=== PATIENT | female | born 1965 | race Caucasian/White ===

== ENCOUNTER → 2019-07-03 | Outpatient (CLI) | payer MEDICAID ==
--- NOTE | 2019-07-03 16:15 | XR ---
EXAMINATION TYPE: XR Hip Complete RT DATE OF EXAM: 07/03/2019 CLINICAL HISTORY: Right hip pain TECHNIQUE: AP and frogleg views of the right hip are obtained. COMPARISON: None. FINDINGS: There is no acute fracture/dislocation evident in the right hip. The joint space in the r ight hip appears slightly narrowed in a cephalad direction with acetabular roof sclerosis. Small ost eophyte of the medial femoral head is seen on the frog leg view. The overlying soft tissue appears un remarkable. Tubal ligation clip is noted within the pelvis. IMPRESSION: There is no acute fracture or dislocation in the right hip. Mild right femoral acetabula r arthropathy.
== END | disposition home or self-care (01) ==
LOC: RADXRMAIN 14:04
PROVIDERS: ATTEND Anesthesiology
DX: M12.851 Other specific arthropathies, not elsewhere classified, right hip (principal)
CPT/HCPCS: 73502

== ENCOUNTER 2024-11-28 17:44 | Inpatient (IN) | payer MEDICAID, OTHER ==
--- NOTE | 2024-11-28 18:24 | ED ---
Abdominal Pain HPI - General Chief Complaint: Abdominal Pain Stated Complaint: Abd pain Time Seen by Provider: 11/28/24 17:53 Source: patient, EMS, RN notes reviewed Mode of arrival: EMS Limitations: no limitations - History of Present Illness Initial Comments: This is a 59-year-old female who presents to the emergency department for abdominal pain. Patient reports left lower quadrant abdominal pain starting 3 to 4 hours ago while she was at work. States that she started to feel nauseous as well. She takes morphine and [place] chronically, however those were not effectively managing her symptoms. Denies any diarrhea or constipation. Denies any history of diverticulosis or similar symptoms in the past. MD Complaint: abdominal pain - Related Data Allergies Allergy/AdvReac Type Severity Reaction Status Date / Time Sulfa (Sulfonamide AdvReac Rash/Hives Verified 11/28/24 18:03 Antibiotics) Review of Systems ROS Statement: Those systems with pertinent positive or pertinent negative responses have been documented in the HPI. ROS Other: All systems not noted in ROS Statement are negative. Past Medical History Past Medical History: Diabetes Mellitus, Fibromyalgia, Sleep Apnea/CPAP/BIPAP Additional Past Medical History / Comment(s): Fatiалександр, TMJ, Past Psychological History: No Psychological Hx Reported Smoking Status: Never smoker Past Alcohol Use History: Occasional Past Drug Use History: None Reported General Exam Limitations: no limitations General appearance: alert, in no apparent distress Head exam: Present: atraumatic, normocephalic, normal inspection Respiratory exam: Present: normal lung sounds bilaterally. Absent: respiratory distress, wheezes, rales, rhonchi, stridor Cardiovascular Exam: Present: normal rhythm, tachycardia GI/Abdominal exam: Present: soft, tenderness (LLQ and RLQ). Absent: distended Neurological exam: Present: alert, oriented X3, CN II-XII intact Psychiatric exam: Present: normal affect, normal mood Skin exam: Present: warm, dry, intact, normal color. Absent: rash Course Vital Signs 11/28/24 11/28/24 11/28/24 17:55 18:05 19:02 Temperature 100.9 F H 101.6 F H Pulse Rate 113 H 113 H Respiratory 18 16 Rate Blood Pressure 147/78 154/72 O2 Sat by Pulse 94 L 98 Oximetry 11/28/24 11/28/24 11/29/24 19:44 22:09 00:10 Temperature 99.4 F 99.0 F Pulse Rate 103 H 94 91 Respiratory 17 14 16 Rate Blood Pressure 120/68 118/49 139/74 O2 Sat by Pulse 98 95 98 Oximetry Medical Decision Making - Medical Decision Making This is a 59 year old female who presents to the emergency department for abdominal pain. Was pt. sent in by a medical professional or institution? @ -No Did you speak to anyone other than the patient for history? @ -No Did you review nursing and triage notes? @ -Yes, and I agree, it is accurate with regards to the patient's symptoms. Were old charts reviewed? @ -No Differential Diagnosis? @ -Differential Abdominal Pain Women: Appendicitis, Cholecystitis, diverticulosis, ischemic bowel, pancreatitis, hepatitis, UTI, gastroenteritis, AAA, incarcerated hernia, bowel obstruction, constipation, inflammatory bowel, hepatitis, peptic ulcer disease, splenic infarction, perforated viscus, vulvitis, ovarian torsion, PID, kidney stone, placenta abruption, this is not meant to be an all-inclusive list EKG interpreted by me (3pts min.)? @ -EKG interpreted by me demonstrating the following: Sinus rhythm. Ventricular rate 90 bpm, UT interval 149 ms, QRS duration 94 ms, QTc 403 ms. X-rays interpreted by me (1pt min.)? @ -Not obtained CT interpreted by me (1pt min.)? @ -CT scan of the abdomen and pelvis obtained. My interpretation identifies no evidence of bowel wall thickening or free air. U/S interpreted by me (1pt. min.)? @ -Transvaginal ultrasound obtained. My interpretation identifies thickening in the endometrial canal. What testing was considered but not performed? (CT, X-rays, U/S, labs)? Why? @ -None What meds were considered but not given? Why? @ -None Did you discuss the management of the patient with other professionals? @ -Yes, Ajit Velez, who accepts the patient for admission. Did you reconcile home meds? @ -No Was smoking cessation discussed for >3mins.? @ -No Was critical care preformed (if so, how long)? @ -No Were there social determinants of health that impacted care today? How? (Homelessness, low income, unemployed, alcoholism, drug addiction, transportation, low edu. Level, literacy, decrease access to med. care, usp, rehab)? @ -No Was there de-escalation of care discussed even if they declined? (Discuss DNR or withdrawal of care, Hospice)? @ -No What co-morbidities impacted this encounter? (DM, HTN, Smoking, COPD, CAD, Cancer, CVA, Hep., AIDS, mental health diagnosis, sleep apnea, morbid obesity)? @ -DM, fibromyalgia Was patient admitted / discharged? @ -Admitted. Patient was febrile on arrival with a temperature of 101.6 de grees Fahrenheit. Lab work demonstrates leukocytosis with a white blood cell count of 12. Urinalysis demonstrates blood but is negative for signs of infection. We started with a CT scan of the abdomen and pelvis. No obvious gastrointestinal process was identified. However, she was found to have a thickened endometrial canal with low-density fluid in the right hemipelvis. We then proceeded with a transvaginal ultrasound. This revealed complex thickening within the endometrial canal and hemorrhage is favored. Patient denies any vaginal bleeding. She is not fully menopausal yet, but states that she has not had a period in 6 months. Patient appears to have some sort of pelvic infection . Patient admitted to medicine for further management with IV antibiotics. Additionally, because she is opioid tolerant her pain would be difficult to manage at home. Blood cultures obtained and she was started on Rocephin, Flagyl, and doxycycline. Consult placed for [facility] [employer]. Case discussed with ED attending Dr. Chang. Undiagnosed new problem with uncertain prognosis? @ -None Drug Therapy requiring intensive monitoring for toxicity (Heparin, Nitro, I nsulin, Cardizem)? @ -None Were any procedures done? @ -None Diagnosis/symptom? @ -Pelvic infection Acute, or Chronic, or Acute on Chronic? @ -Acute Uncomplicated (without systemic symptoms) or Complicated (systemic symptoms)? @ -Uncomplicated Side effects of treatment? @ -None Exacerbation, Progression, or Severe Exacerbation] @ -Not applicable Poses a threat to life or bodily function? @ -Yes, can lead to life-threatening infection - Lab Data Result diagrams: 11/28/24 18:42 11/28/24 18:42 Lab Results 11/28/24 11/28/24 11/28/24 Range/Units 18:42 18:42 18:42 WBC 12.0 H (3.8-10.6) k/uL RBC 4.30 (3.80-5.40) m/uL Hgb 12.9 (11.4-16.0) gm/dL Hct 39.4 (34.0-46.0) % MCV 91.5 (80.0-100.0) fL MCH 30.0 (25.0-35.0) pg MCHC 32.8 (31.0-37.0) g/dL RDW 13.1 (11.5-15.5) % Plt Count 185 (150-450) k/uL MPV 7.4 Neutrophils % 84 % Lymphocytes % 10 % Monocytes % 3 % Eosinophils % 1 % Basophils % 0 % Neutrophils # 10.1 H (1.3-7.7) k/uL Lymphocytes # 1.2 (1.0-4.8) k/uL Monocytes # 0.4 (0-1.0) k/uL Eosinophils # 0.2 (0-0.7) k/uL Basophils # 0.0 (0-0.2) k/uL Sodium 137 (137-145) mmol/L Potassium 4.5 (3.5-5.1) mmol/L Chloride 98 (98-107) mmol/L Carbon Dioxide 31 H (22-30) mmol/L Anion Gap 8 mmol/L BUN 24 H (7-17) mg/dL Creatinine 0.64 (0.52-1.04) mg/dL Est GFR (CKD-EPI)AfAm >90 (>60 ml/min/1.73 sqM) Est GFR (CKD-EPI)NonAf >90 (>60 ml/min/1.73 sqM) Glucose 106 H (74-99) mg/dL Plasma Lactic Acid [place] 0.8 (0.7-2.0) mmol/L Calcium 9.4 (8.4-10.2) mg/dL Total Bilirubin 0.7 (0.2-1.3) mg/dL AST 28 (14-36) U/L ALT 33 (4-34) U/L Alkaline Phosphatase 75 (38-126) U/L Total Protein 7.1 (6.3-8.2) g/dL Albumin 4.4 (3.5-5.0) g/dL Amylase 54 (30-110) U/L Lipase 56 (23-300) U/L HCG, Qual Urine Color Urine Appearance (Clear) Urine pH (5.0-8.0) Ur Specific Gladys (1.001-1.035) Urine Protein (Negative) Urine Glucose (UA) (Negative) Urine Ketones (Negative) Urine Blood (Negative) Urine Nitrite (Negative) Urine Bilirubin (Negative) Urine Urobilinogen (<2.0) mg/dL Ur Leukocyte Esterase (Negative) Urine RBC (0-5) /hpf Urine WBC (0-5) /hpf Ur Squamous Epith Cells (0-4) /hpf Urine Bacteria (None) /hpf Urine Mucus (None) /hpf 11/28/24 11/28/24 Range/Units 20:19 20:19 WBC (3.8-10.6) k/uL RBC (3.80-5.40) m/uL Hgb (11.4-16.0) gm/dL Hct (34.0-46.0) % MCV (80.0-100.0) fL MCH (25.0-35.0) pg MCHC (31.0-37.0) g/dL RDW (11.5-15.5) % Plt Count (150-450) k/uL MPV Neutrophils % % Lymphocytes % % Monocytes % % Eosinophils % % Basophils % % Neutrophils # (1.3-7.7) k/uL Lymphocytes # (1.0-4.8) k/uL Monocytes # (0-1.0) k/uL Eosinophils # (0-0.7) k/uL Basophils # (0-0.2) k/uL Sodium (137-145) mmol/L Potassium (3.5-5.1) mmol/L Chloride (98-107) mmol/L Carbon Dioxide (22-30) mmol/L Anion Gap mmol/L BUN (7-17) mg/dL Creatinine (0.52-1.04) mg/dL Est GFR (CKD-EPI)AfAm (>60 ml/min/1.73 sqM) Est GFR (CKD-EPI)NonAf (>60 ml/min/1.73 sqM) Glucose (74-99) mg/dL Plasma Lactic Acid [place] (0.7-2.0) mmol/L Calcium (8.4-10.2) mg/dL Total Bilirubin (0.2-1.3) mg/dL AST (14-36) U/L ALT (4-34) U/L Alkaline Phosphatase (38-126) U/L Total Protein (6.3-8.2) g/dL Albumin (3.5-5.0) g/dL Amylase (30-110) U/L Lipase (23-300) U/L HCG, Qual Not Detected Urine Color Dark Yellow Urine Appearance Clear (Clear) Urine pH 5.5 (5.0-8.0) Ur Specific Gladys 1.030 (1.001-1.035) Urine Protein Negative (Negative) Urine Glucose (UA) Negative (Negative) Urine Ketones 1+ H (Negative) Urine Blood Moderate H (Negative) Urine Nitrite Negative (Negative) Urine Bilirubin Negative (Negative) Urine Urobilinogen <2.0 (<2.0) mg/dL Ur Leukocyte Esterase Negative (Negative) Urine RBC 31 H (0-5) /hpf Urine WBC 1 (0-5) /hpf Ur Squamous Epith Cells 5 H (0-4) /hpf Urine Bacteria Rare H (None) /hpf Urine Mucus Rare H (None) /hpf - Radiology Data Radiology results: report reviewed, image reviewed Disposition Clinical Impression: Pelvic infection in female Disposition: ADMITTED IP TO THIS HOSP
[2024-11-28] MEDS: SODIUM CHLORIDE 0.9% 2,000 ML IV STA (18:53)
[2024-11-28] MEDS: HYDROmorphone 1 MG/ML 1 ML SYRINGE IVP STA (18:55)
[2024-11-28 18:57] LABS: Basophils % (A) 0 %; Eosinophils # (A) 0.2 k/uL (0-0.7); Eosinophils % (A) 1 %; HCT 39.4 % (34.0-46.0); HGB 12.9 gm/dL (11.4-16.0); Lymphocytes # (A) 1.2 k/uL (1.0-4.8); Lymphocytes % (A) 10 %; MCHC 32.8 g/dL (31.0-37.0); MCV 91.5 fL (80.0-100.0); Mean Platelet Volume 7.4; Monocytes # (A) 0.4 k/uL (0-1.0); Monocytes % (A) 3 %; Neutrophils # (A) 10.1 k/uL (1.3-7.7); Neutrophils % (A) 84 %; Platelet Count 185 k/uL (150-450); RDW 13.1 % (11.5-15.5)
[2024-11-28] MEDS: ACETAMINOPHEN IV (For NPO) 1,000 MG in EMPTY BAG 1 BAG IVPB STA (19:01)
[2024-11-28 19:09] LABS: ALT 33 U/L (4-34); AST 28 U/L (14-36); African American GFR (CKD) >90 (>60 ml/min/1.73 sqM); Albumin 4.4 g/dL (3.5-5.0); Alkaline Phosphatase 75 U/L (38-126); Amylase 54 U/L (30-110); Anion Gap 8 mmol/L; Blood Urea Nitrogen 24 mg/dL (7-17); Calcium 9.4 mg/dL (8.4-10.2); Carbon Dioxide 31 mmol/L (22-30); Chloride 98 mmol/L (98-107); Glucose 106 mg/dL (74-99); Lipase 56 U/L (23-300); Non-African American GFR(CKD) >90 (>60 ml/min/1.73 sqM); Potassium 4.5 mmol/L (3.5-5.1); Sodium 137 mmol/L (137-145); Total Bilirubin 0.7 mg/dL (0.2-1.3); Total Protein 7.1 g/dL (6.3-8.2)
--- NOTE | 2024-11-28 20:19 | CT ---
EXAMINATION TYPE: CT abdomen pelvis w con DATE OF EXAM: 11/28/2024 8:03 PM COMPARISON: None. CLINICAL INDICATION: Female, 59 years old with history of LLQ abdominal pain, Lower abdominal pain TECHNIQUE: Axial images were obtained from above the diaphragm to the pubic rami in the axial plane a t 5 mm thick sections. Reconstructed images are reviewed on the computer in the coronal plane. CONTRAST: 100 mL of Isovue 300. Study performed without Oral Contrast DLP: 797.1 mGycm, Automated exposure control for dose reduction was used. FINDINGS: Limited CT sections are obtained the lung bases. The lung bases are clear. CT ABDOMEN: Liver: Normal Spleen: Normal Pancreas: Normal Adrenal glands: The adrenal glands are normal. Gallbladder: Normal Kidneys: No masses are evident. No hydronephrosis is present. No cysts are present. Delayed images were obtained through the kidneys, which remain unremarkable. Aorta: Vascular calcification is within the aorta. Inferior vena cava: Normal. CT PELVIS: Loops of bowel within the abdomen and pelvis are normal. The study is without oral contrast limit ing bowel evaluation. Appendix: Normal as visualized. Urinary bladder: Normal. Genitourinary structures: Uterus is in the anterior right hemipelvis and has enlarged endometrial can al with low density may be some fluid. Osseous structures: No suspicious lytic or sclerotic lesions. IMPRESSION: 1. Thickened endometrial canal likely with low-density fluid in the right hemipelvis. 2. Suspicious abnormality account for left lower quadrant pain not identified. [facility], Workstation: [facility], 11/28/2024 8:17 PM
[2024-11-28 20:32] LABS: Appearance,Urine Clear (Clear); Bacteria,Urine Rare /hpf; Bilirubin,Urine Negative (Negative); Blood,Urine Moderate (Negative); Color,Urine Dark Yellow; Glucose,Urine (UA) Negative (Negative); Ketones,Urine 1+ (Negative); Leukocyte Esterase,Urine Negative (Negative); Mucus,Urine Rare /hpf; Nitrite,Urine Negative (Negative); PH, Urine 5.5 (5.0-8.0); Protein,Urine Negative (Negative); RBC,Urine 31 /hpf (0-5); Squamous Epithelial Cell,Urine 5 /hpf (0-4); Urobilinogen,Urine <2.0 mg/dL (<2.0); WBC,Urine 1 /hpf (0-5)
--- NOTE | 2024-11-28 21:46 | US ---
EXAMINATION TYPE: US transvaginal DATE OF EXAM: 11/28/2024 COMPARISON: CT 2024 CLINICAL INDICATION: Female, 59 years old with history of Pelvic pain, fevers, abnormal CT; TECHNIQUE: Transvaginal (TV). FINDINGS: Date of LMP: 1 year ago EXAM MEASUREMENTS: Uterus: 9.7 x 4.4 x 5.4 cm Endometrial Stripe: 2.7 cm Right Ovary: not seen Left Ovary: not seen 1. Uterus: anteverted 2. Endometrium: thickened with complex fluid 3. Right Ovary: not seen due to overlying bowel gas 4. Left Ovary: not seen due to overlying bowel gas 5. Bilateral Adnexa: prominent vessels 6. Posterior cul-de-sac: free fluid IMPRESSION: 1. Complex thickening within the endometrial canal. Hemorrhage is favored. Correlate with beta hCG. F ollow-up recommended [facility], Workstation: [facility], 11/28/2024 9:43 PM
[2024-11-28] MEDS ORDERED: NALOXONE 0.4 MG/ML 1 ML VIAL IV PRN (22:47)
[2024-11-28] MEDS ORDERED: ONDANSETRON 4 MG/2 ML VIAL IVP PRN (22:47)
[2024-11-28] MEDS ORDERED: HYDROmorphone 0.5 MG/0.5 ML SYRINGE IVP PRN (22:47)
[2024-11-28] MEDS: SODIUM CHLORIDE 0.9% 1,000 ML IV STA (23:13)
[2024-11-28] MEDS: KETOROLAC 15 MG/ML 1 ML VIAL IVP PRN (23:23)
[2024-11-28] MEDS: DOXYCYCLINE 100 MG in SODIUM CHLORIDE 0.9% 100 ML IVPB SCH (23:33)
[2024-11-29] MEDS: metroNIDAZOLE-NS PMX 500 MG in SALINE 1 100ML.BAG IVPB SCH (00:32)
[2024-11-29] MEDS: IBUPROFEN 400 MG TAB PO PRN (03:13)
[2024-11-29] MEDS: PANTOPRAZOLE 40 MG/10 ML VIAL IV SCH (08:21)
[2024-11-29] MEDS: HYDROmorphone 1 MG/ML 1 ML SYRINGE IVP PRN (08:53)
--- NOTE | 2024-11-29 13:33 | P.HPIM ---
History of Present Illness H&P Date: 11/29/24 History of present illness: This is a 59-year-old female with past medical history significant for diabetes mellitus, fibromyalgia, obstructive sleep apnea who presented to ER with a complaint of abdominal pain. Patient stated that she has left lower quadrant abdominal pain, radiating to right side going on since yesterday. Patient stated that she was at work when the abdominal pain started. Patient reported nausea, denied any vomiting, diarrhea or constipation. Patient stated that she takes morphine and [place] chronically, the pain medications are not effectively managing her pain. Patient reported chills, denied any fevers. Patient never had colonoscopy. Patient is postmenopausal for the last 7 years, had a D&C about 1-1/2-year ago for vaginal spotting and reported having a endometrial polyp, reported no issues since then. Patient not sexually active. Patient is afebrile, heart rate 92, respiratory rate 18, blood pressure 133/73, saturating 96% on room air. WBCs 12.0, hemoglobin 12.9, platelet 185. ESR 22, CRP 3.2. CMP unremarkable. UA negative for infection. CT abdomen pelvis showed thickened endometrial canal likely with low-density fluid in the right hemipelvis. Transvaginal ultrasound showed complex thickening within the endometrial canal, hemorrhages favored, correlate with beta-hCG, follow-up recommended. Assessment and plan: Lower abdominal pain: Presented with complaint of lower abdominal pain, more pronounced in left lower quadrant. CT abdomen pelvis showed thickened endometrial canal likely with low-density fluid in the right hemipelvis Transvaginal ultrasound showed complex thickening within the endometrial canal, hemorrhage favored. EXERCISE SPECIALIST consultedrecommended general surgery consult ID consulted Antibiotics Rocephin, Flagyl, doxycycline General Surgery consult to evaluate for colonoscopy. History of fibromyalgia Obstructive sleep apnea GERD DVT prophylaxis SCD Monitor vital signs and labs Labs and medication were reviewed. Continue same treatment. Further recommendations as per clinical course of the patient PHYSICAL EXAMINATION: GENERAL: The patient is A&O x3, NAD HEENT: EOMI, Sclerae anicteric, Moist Mucous membranes Neck: Supple, Non tender, No JVD PULMONARY: Equal breath souds B/L, No wheezing, No crackles. CARDIOVASCULAR: S1, S2 present. No murmurs, rubs, or gallops. ABDOMEN: Lower abdominal tenderness. Nondistended, normoactive bowel sounds. No guarding or rebound tenderness. MUSCULOSKELETAL: No edema, No cyanosis. No clubbing. Normal ROM. Intact peripheral pulses. NEUROLOGICAL: CN 2-12 grossly intact. No FND REVIEW OF SYSTEMS: CONSTITUTIONAL: No fever, no malaise, no fatigue. HEENT: No recent visual problems or hearing problems. Denied any sore throat. CARDIOVASCULAR: No chest pain, orthopnea, PND, no palpitations, no syncope. PULMONARY: No shortness of breath, no cough, no hemoptysis. GASTROINTESTINAL: No diarrhea, no nausea, no vomiting, complains of lower abdominal pain. NEUROLOGICAL: No headaches, no weakness, no numbness. HEMATOLOGICAL: Denies any bleeding or petechiae. GENITOURINARY: Denies any burning micturition, frequency, or urgency. MUSCULOSKELETAL/RHEUMATOLOGICAL: Denies any joint pain, swelling, or any muscle pain. ENDOCRINE: Denies any polyuria or polydipsia. The rest of the 14-point review of systems is negative. Dictation was produced using [employer] dictation software. please excuse any grammatical, word or spelling errors. Past Medical History Past Medical History: Diabetes Mellitus, Fibromyalgia, Sleep Apnea/CPAP/BIPAP Additional Past Medical History / Comment(s): Fatique, TMJ, History of Any Multi-Drug Resistant Organisms: None Reported Past Anesthesia/Blood Transfusion Reactions: No Reported Reaction Past Psychological History: No Psychological Hx Reported Smoking Status: Never smoker Past Alcohol Use History: Occasional Past Drug Use History: None Reported Medications and Allergies Allergies Allergy/AdvReac Type Severity Reaction Status Date / Time Sulfa (Sulfonamide AdvReac Rash/Hives Verified 11/28/24 18:03 Antibiotics) Physical Exam Vitals: Vital Signs Temp Pulse Pulse Resp BP BP Pulse Ox 11/29/24 13:11 98.6 F 92 18 133/73 96 11/29/24 07:56 97.7 F 89 19 157/80 94 L 11/29/24 06:51 87 18 141/76 97 11/29/24 04:03 98.6 F 82 17 150/74 96 11/29/24 01:58 98.4 F 11/29/24 00:10 91 16 139/74 98 11/28/24 22:09 99.0 F 94 14 118/49 95 11/28/24 19:44 99.4 F 103 H 17 120/68 98 11/28/24 19:02 113 H 16 154/72 98 11/28/24 18:05 101.6 F H 11/28/24 17:55 100.9 F H 113 H 18 147/78 94 L Intake and Output 11/28/24 11/29/24 11/29/24 22:59 06:59 14:59 Other: Weight 70.307 kg 70.307 kg Results CBC & Chem 7: 11/28/24 18:42 11/28/24 18:42 Labs: Abnormal Lab Results - Last 24 Hours (Table) 11/28/24 11/28/24 11/28/24 Range/Units 18:42 18:42 20:19 WBC 12.0 H (3.8-10.6) k/uL Neutrophils # 10.1 H (1.3-7.7) k/uL Carbon Dioxide 31 H (22-30) mmol/L BUN 24 H (7-17) mg/dL Glucose 106 H (74-99) mg/dL C-Reactive Protein (<1.0) mg/dL Urine Ketones 1+ H (Negative) Urine Blood Moderate H (Negative) Urine RBC 31 H (0-5) /hpf Ur Squamous Epith Cells 5 H (0-4) /hpf Urine Bacteria Rare H (None) /hpf Urine Mucus Rare H (None) /hpf 11/28/24 Range/Units 22:51 WBC (3.8-10.6) k/uL Neutrophils # (1.3-7.7) k/uL Carbon Dioxide (22-30) mmol/L BUN (7-17) mg/dL Glucose (74-99) mg/dL C-Reactive Protein 3.2 H (<1.0) mg/dL Urine Ketones (Negative) Urine Blood (Negative) Urine RBC (0-5) /hpf Ur Squamous Epith Cells (0-4) /hpf Urine Bacteria (None) /hpf Urine Mucus (None) /hpf Thrombosis Risk Factor Assmnt - Choose All That Apply Each Factor Represents 1 point: Age 41-60 years Other congenital or acquired thrombophilia - If yes, enter type in comment: No Thrombosis Risk Factor Assessment Total Risk Factor Score: 1 Thrombosis Risk Factor Assessment Level: Low Risk
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
[2024-11-29] MEDS: IOPAMIDOL CONTRAST (ORAL USE) VIAL PO PRN (14:43)
[2024-11-29] MEDS: PIPERACILLIN-TAZOBACTAM 3.375 GM in SODIUM CHLORIDE 0.9% 100 ML IVPB SCH (16:48)
[2024-11-29 17:17] LABS: Glucose,Whole Blood 139 mg/dL (70-110)
--- NOTE | 2024-11-29 18:12 | CT ---
EXAMINATION TYPE: CT abdomen pelvis wo con DATE OF EXAM: 11/29/2024 4:28 PM COMPARISON: CT abdomen pelvis most recent from CLINICAL INDICATION: Female, 59 years old with history of Left lower abdominal pain/diverticulitis; a bdominal pain, nausea TECHNIQUE: Axial CT abdomen pelvis wo con;Sagittal and coronal reformats were created on a separate workstation. Oral contrast used: with Oral Contrast (none if empty) CT DLP: 399.6 mGycm, Automated exposure control for dose reduction was used. FINDINGS: LOWER CHEST: Unremarkable ABDOMEN LIVER: Unremarkable GALLBLADDER AND BILE DUCTS: Unremarkable. PANCREAS: Unremarkable. SPLEEN: Unremarkable. ADRENAL GLANDS: Unremarkable. KIDNEYS AND URETERS: No evidence of hydronephrosis or renal calculus. The ureters are unremarkable. PELVIS BLADDER: Mildly distended without evidence of wall thickening or discrete bladder mass. REPRODUCTIVE: Bilateral metallic densities compatible with tube ligation clips.. Lumbar spine degenerative changes. Thickening of the endometrial canal measuring approximately 16 mm in diameter, not well evaluated on this noncontrast study. ABDOMEN & PELVIS STOMACH AND BOWEL: Stomach and duodenum are unremarkable No evidence of bowel obstruction. Large volu me diffuse colonic stool burden suggesting constipation. PERITONEUM/RETROPERITONEUM: No evidence of pneumoperitoneum or free fluid. VASCULATURE: No evidence of aortic aneurysm. MUSCULOSKELETAL: No acute osseous abnormalities. Spinal stimulator device LYMPH NODES: No gross evidence for lymphadenopathy. SOFT TISSUE/ABDOMINAL WALL: Unremarkable IMPRESSION: 1. No acute abnormality in the abdomen/pelvis. Specifically, no CT evidence of acute diverticulitis. 2. Large volume diffuse colonic stool burden suggesting constipation. 3. Thickened endometrium measuring approximately 16 mm in greatest diameter, not well evaluated on t his noncontrast CT abdomen/pelvis study. Recommend outpatient pelvic ultrasound study for further dale luation. [facility], , 11/29/2024 6:10 PM
[2024-11-29 20:00] LABS: Glucose,Whole Blood 131 mg/dL (70-110)
[2024-11-29] MEDS ORDERED: DOCUSATE 100 MG CAP PO PRN (20:05)
--- NOTE | 2024-11-29 20:11 | P.CON ---
Consult Note - . Consult date: 11/29/24 Assessment/Plan:: This is a 59-year-old female who presents to the emergency department for abdominal pain. Patient reports left lower quadrant abdominal pain starting 3 to 4 hours ago while she was at work. States that she started to feel nauseous as well. She takes morphine and [place] chronically, however those were not effectively managing her symptoms. Denies any diarrhea or constipation. Denies any history of diverticulosis or similar symptoms in the past. CT-AP performed this evening shows constipation, endometrial thickening, and no other acute process. Patient has never had a colonoscopy. Review of Systems ROS Statement: Those systems with pertinent positive or pertinent negative responses have been documented in the HPI. ROS Other: All systems not noted in ROS Statement are negative. Past Medical History Past Medical History: Diabetes Mellitus, Fibromyalgia, Sleep Apnea/CPAP/BIPAP Additional Past Medical History / Comment(s): Jody, TMJ, Past Psychological History: No Psychological Hx Reported Smoking Status: Never smoker Past Alcohol Use History: Occasional Past Drug Use History: None Reported General Exam Limitations: no limitations General appearance: alert, in no apparent distress Head exam: Present: atraumatic, normocephalic, normal inspection Respiratory exam: Present: normal lung sounds bilaterally. Absent: respiratory distress, wheezes, rales, rhonchi, stridor Cardiovascular Exam: Present: normal rhythm, tachycardia GI/Abdominal exam: Present: soft, tenderness (LLQ and RLQ). Absent: distended Neurological exam: Present: alert, oriented X3, CN II-XII intact Psychiatric exam: Present: normal affect, normal mood Skin exam: Present: warm, dry, intact, normal color. Absent: rash 53 year old female with abdominal pain. CT-AP shows constipation and endometrial thickening -Imaging reviewed -Discussed possible inpatient vs outpatient colonoscopy with patient. If symptoms do not improve will do colonoscopy Sunday. -Will need to be on CLD Sunday and Bowel Prep Sunday -Chipper Machine Operator recs appreciated -Miralax and Colace added Des Ramirez DO [facility] [phone]
[2024-11-29] MEDS: ACETAMINOPHEN TAB 325 MG TAB PO PRN (20:39)
[2024-11-29] MEDS ORDERED: NON FORMULARY DRUG (Orphenadrine 100 MG Tablet) PO PRN (21:34)
[2024-11-29] MEDS: MORPHINE SULFATE ER 15 MG TABLET PO SCH (22:15)
[2024-11-29] MEDS: traZODone HCL 50 MG TAB PO SCH (22:15)
[2024-11-30] MEDS: LEVOTHYROXINE 50 MCG TAB PO SCH (06:05)
[2024-11-30 07:15] LABS: Glucose,Whole Blood 93 mg/dL (70-110)
[2024-11-30] MEDS: buPROPion XL 300 MG TAB.ER.24H PO SCH (08:19)
[2024-11-30] MEDS: lisinopriL 10 MG TAB PO SCH (08:19)
[2024-11-30] MEDS: CYCLOBENZAPRINE 5 MG TAB PO SCH (08:19)
[2024-11-30] MEDS: polyethylene glycoL 3350 17 GM POWD.PACK PO SCH (08:20)
[2024-11-30] MEDS: NON FORMULARY DRUG (Dextroamphetamine/Amphetamine [Adderall Xr 10 Mg Capsule] 10 MG Cap.Er PO SCH (08:20)
[2024-11-30] MEDS: HYDROcodone/APAP 5-325MG 1 EACH TAB PO PRN (08:27)
--- NOTE | 2024-11-30 08:54 | P.CONS ---
History of Present Illness - Reason for Consult Consult date: 11/29/24 PID Requesting physician: Cirilo Dao - Chief Complaint Left lower abdominal pain x 1 day - History of Present Illness Patient is a 59-year-old female with a past medical history significant for diabetes mellitus fibromyalgia sleep apnea [facility] for evaluation of left lower quadrant abdominal pain that apparently started about 4 hours before presentation to the hospital patient describing the pain to be sharp has been moderate intense without radiation patient has felt nauseous but no vomiting patient denies having any diarrhea denies having any burning or frequency of urine and denies having any vaginal drainage patient to have a history of constipation and uses laxatives on a routine basis or visitation to the hospital patient did have a fever with a temperature of 101.6 F patient was mildly tachycardic but not hypotensive or hypoxic patient workup including UA tissue sent pneumaturia but no pyuria white count was 12,000 with a left shift creatinine was 0.64 electrolytes are normal liver isms are normal urine hCG was negative CRP was 3.2 blood culture have been obtained which are currently pending patient did have abdominal pelvis CT with IV contrast only which mention thickened endometrial canal with low-density fluid in the right hemipelvis no abnormality in the left lower quadrant subsequently did have a transvaginal ultrasound right and left ovary not seen because the gas uterus was anteverted endometrium was thickened with complex fluid patient was started on Rocephin Flagyl and doxycycline infectious disease was consulted for further management of antibiotic therapy patient has been evaluated by OB with impression of pelvic infection virtually 0 Review of Systems Positive point and negatives has been mentioned in the HPI, complete review of systems was performed and all other systems are negative Past Medical History Past Medical History: Diabetes Mellitus, Fibromyalgia, Sleep Apnea/CPAP/BIPAP Additional Past Medical History / Comment(s): Jody, TMJ, History of Any Multi-Drug Resistant Organisms: None Reported Past Anesthesia/Blood Transfusion Reactions: No Reported Reaction Past Psychological History: No Psychological Hx Reported Smoking Status: Never smoker Past Alcohol Use History: Occasional Past Drug Use History: None Reported Medications and Allergies Home Medications Medication Instructions Recorded Confirmed Type Cyclobenzaprine [Flexeril] 5 mg PO DAILY 11/29/24 11/29/24 History Dextroamphetamine/Amphetamine 10 mg PO DAILY 11/29/24 11/29/24 History [Adderall Xr 10 mg Capsule] HYDROcodone/APAP 5-325MG [[place] 1 tab PO BID 11/29/24 11/29/24 History 5-325] Levothyroxine Sodium [Synthroid] 50 mcg PO DIRECTED 11/29/24 11/29/24 History Milnacipran HCl [Savella] 100 mg PO DIRECTED 11/29/24 11/29/24 History Morphine Sulfate ER [Ms Contin] 15 mg PO BID 11/29/24 11/29/24 History Orphenadrine [Norflex] 100 mg PO BID PRN 11/29/24 11/29/24 History buPROPion XL [Wellbutrin XL] 300 mg PO DAILY 11/29/24 11/29/24 History lisinopriL [Zestril] 10 mg PO DAILY 11/29/24 11/29/24 History rOPINIRole HCL [Requip] 1 mg PO HS 11/29/24 11/29/24 History traZODone HCL [Desyrel] 50 mg PO HS 11/29/24 11/29/24 History Allergies Allergy/AdvReac Type Severity Reaction Status Date / Time Sulfa (Sulfonamide Allergy Rash/Hives Verified 11/29/24 14:28 Antibiotics) sulfamethoxazole Allergy Rash/Hives Verified 11/29/24 14:28 [From Bactrim] trimethoprim [From Bactrim] Allergy Rash/Hives Verified 11/29/24 14:28 steri strips Allergy Rash/Hives Uncoded 11/29/24 14:29 Physical Exam Vitals: Vital Signs Temp Pulse Pulse Resp BP BP Pulse Ox 11/29/24 07:56 97.7 F 89 19 157/80 94 L 11/29/24 06:51 87 18 141/76 97 11/29/24 04:03 98.6 F 82 17 150/74 96 11/29/24 01:58 98.4 F 11/29/24 00:10 91 16 139/74 98 11/28/24 22:09 99.0 F 94 14 118/49 95 11/28/24 19:44 99.4 F 103 H 17 120/68 98 11/28/24 19:02 113 H 16 154/72 98 11/28/24 18:05 101.6 F H 11/28/24 17:55 100.9 F H 113 H 18 147/78 94 L Intake and Output 11/28/24 11/29/24 11/29/24 22:59 06:59 14:59 Other: Weight 70.307 kg 70.307 kg GENERAL DESCRIPTION: Middle-aged female lying in bed, no distress. No tachypnea or accessory muscle of respiration use. HEENT: Shows Pallor , no scleral icterus. Oral mucous membrane is dry. No pharyngeal erythema or thrush NECK: Trachea central, no thyromegaly. LUNGS: Unlabored breathing. Clear to auscultation anteriorly. No wheeze or crackle. HEART: S1, S2, regular rate and rhythm. No loud murmur ABDOMEN: Soft, left lower quadrant tenderness , guarding or rigidity, no organomegaly EXTREMITIES: No edema of feet. SKIN: No rash, no masses palpable. NEUROLOGICAL: The patient is awake, alert, oriented x3, mood and affect normal. Results CBC & Chem 7: 11/30/24 04:45 11/30/24 04:45 Labs: Abnormal Lab Results - Last 24 Hours (Table) 11/28/24 11/28/24 11/28/24 Range/Units 18:42 18:42 20:19 WBC 12.0 H (3.8-10.6) k/uL Neutrophils # 10.1 H (1.3-7.7) k/uL Carbon Dioxide 31 H (22-30) mmol/L BUN 24 H (7-17) mg/dL Glucose 106 H (74-99) mg/dL C-Reactive Protein (<1.0) mg/dL Urine Ketones 1+ H (Negative) Urine Blood Moderate H (Negative) Urine RBC 31 H (0-5) /hpf Ur Squamous Epith Cells 5 H (0-4) /hpf Urine Bacteria Rare H (None) /hpf Urine Mucus Rare H (None) /hpf 11/28/24 Range/Units 22:51 WBC (3.8-10.6) k/uL Neutrophils # (1.3-7.7) k/uL Carbon Dioxide (22-30) mmol/L BUN (7-17) mg/dL Glucose (74-99) mg/dL C-Reactive Protein 3.2 H (<1.0) mg/dL Urine Ketones (Negative) Urine Blood (Negative) Urine RBC (0-5) /hpf Ur Squamous Epith Cells (0-4) /hpf Urine Bacteria (None) /hpf Urine Mucus (None) /hpf Assessment and Plan (1) Sepsis Current Visit: Yes Status: Acute Code(s): A41.9 - SEPSIS, UNSPECIFIED ORGANISM SNOMED Code(s): 97009536 (2) Leukocytosis Current Visit: Yes Status: Acute Code(s): D72.829 - ELEVATED WHITE BLOOD CELL COUNT, UNSPECIFIED SNOMED Code(s): 665740553 Plan: 1patient presented hospital with sepsis in this patient who did have fever elevated white count meeting criteria for SIRS patient did have significant tenderness to left lower quadrant area concerning for possible diverticulitis as the patient has been evaluated by OB and not concerned about the endometritis or PID, with the CT done with IV contrast only will make it less sensitive for any bowel evaluation 2-we will repeat the CT with the oral contrast and IV if possible for better evaluation of the colon 3-discontinue Rocephin and Flagyl and doxycycline 4-we will start the patient on Zosyn 3.375 g every 8 hours pending completion of the workup We will follow on clinical condition and cultures to further adjust medication if needed Thank you for this consultation we will follow the patient along with you Dictation was produced using [employer] dictation software. please excuse any grammatical, word or spelling errors. Time with Patient: Greater than 30
[2024-11-30 09:39] LABS: Basophils # (A) 0.04 X 10*3/uL (0.00-0.10); Basophils % (A) 0.4 %; Eosinophils # (A) 0.15 X 10*3/uL (0.04-0.35); Eosinophils % (A) 1.4 %; HCT 36.6 % (37.2-46.3); HGB 11.8 g/dL (12.0-15.0); Lymphocytes # (A) 2.28 X 10*3/uL (0.90-5.00); Lymphocytes % (A) 21.1 %; MCH 29.4 pg (27.0-32.0); MCHC 32.2 g/dL (32.0-37.0); Mean Platelet Volume 10.4 FL (9.5-12.2); Monocytes # (A) 0.84 X 10*3/uL (0.20-1.00); Monocytes % (A) 7.8 %; NRBC Per 100 WBC 0 X 10*3/uL (0.00-0.01); Neutrophils # (A) 7.49 X 10*3/uL (1.80-7.70); Platelet Count 182 X 10*3/uL (140-440); RBC 4.02 X 10*6/uL (4.10-5.20); WBC 10.83 X 10*3/uL (4.50-10.00)
[2024-11-30 09:49] LABS: Blood Urea Nitrogen 9.7 mg/dL (9.0-27.0); Calcium 8.5 mg/dL (8.7-10.3); Carbon Dioxide 27.8 mmol/L (21.6-31.8); Chloride 104 mmol/L (96-109); Glucose 84 mg/dL (70-110); Potassium 3.7 mmol/L (3.5-5.5); Sodium 142 mmol/L (135-145)
--- NOTE | 2024-11-30 10:01 | P.PN ---
Progress Note - Text Progress Note Date: 11/30/24 Patient still having left sided abdominal pain. Denies bowel movements. Denies nausea and vomiting. Limitations: no limitations General appearance: alert, in no apparent distress Head exam: Present: atraumatic, normocephalic, normal inspection Respiratory exam: Present: normal lung sounds bilaterally. Absent: respiratory distress, wheezes, rales, rhonchi, stridor Cardiovascular Exam: Present: normal rhythm, tachycardia GI/Abdominal exam: Present: soft, tenderness (LLQ and RLQ). Absent: distended Neurological exam: Present: alert, oriented X3, CN II-XII intact Psychiatric exam: Present: normal affect, normal mood Skin exam: Present: warm, dry, intact, normal color. Absent: rash 53 year old female with abdominal pain. CT-AP shows constipation and endometrial thickening -Clear Liquid Diet, NPO/midnight -Golytely Bowel Prep today -Colonoscopy planned for tomorrow -Jewelry Sales recs appreciated Des Ramirez DO [facility] [phone]
[2024-11-30] MEDS: PEG 3350 (236 GM/BTL) + LYTES 4,000 ML BOTTLE PO ONE (10:58)
[2024-11-30 12:36] LABS: Glucose,Whole Blood 120 mg/dL (70-110)
--- NOTE | 2024-11-30 14:59 | P.PN ---
Subjective Progress Note Date: 11/30/24 Interval History: History of present illness: This is a 59-year-old female with past medical history significant for diabetes mellitus, fibromyalgia, obstructive sleep apnea who presented to ER with a compl aint of abdominal pain. Patient stated that she has left lower quadrant abdominal pain, radiating to right side going on since yesterday. Patient stated that she was at work when the abdominal pain started. Patient reported nausea, denied any vomiting, diarrhea or constipation. Patient stated that she takes morphine and [place] chronically, the pain medications are not effectively managing her pain. Patient reported chills, denied any fevers. Patient never had colonoscopy. Patient is postmenopausal for the last 7 years, had a D&C about 1-1/2-year ago for vaginal spotting and reported having a endometrial polyp, reported no issues since then. Patient not sexually active. Patient is afebrile, heart rate 92, respiratory rate 18, blood pressure 133/73, saturating 96% on room air. WBCs 12.0, hemoglobin 12.9, platelet 185. ESR 22, CRP 3.2. CMP unremarkable. UA negative for infection. CT abdomen pelvis showed thickened endometrial canal likely with low-density fluid in the right hemipelvis. Transvaginal ultrasound showed complex thickening within the endometrial canal, hemorrhages favored, correlate with beta-hCG, follow-up recommended. 11/30--patient was seen and examined today. Continues complain of lower abdominal pain. Remains afebrile, vital stable. WBCs 10.8, hemoglobin 11.8, platelets 182. BMP unremarkable. General surgery planning for colonoscopy tomorrow. Infectious disease following, antibiotics currently on Zosyn. Blood culture negative so far. Assessment and plan: Lower abdominal pain: Presented with complaint of lower abdominal pain, more pronounced in left lower quadrant. CT abdomen pelvis showed thickened endometrial canal likely with low-density f luid in the right hemipelvis Transvaginal ultrasound showed complex thickening within the endometrial canal, hemorrhage favored. ASSISTANT MANAGER BILINGUAL consultedrecommended general surgery consult ID consulted Antibiotics Rocephin, Flagyl, doxycycline>>> now switched to Zosyn. General Surgery consulte plan for colonoscopy 12/01.d--- History of fibromyalgia Obstructive sleep apnea GERD DVT prophylaxis SCD Monitor vital signs and labs Labs and medication were reviewed. Continue same treatment. Further recommendations as per clinical course of the patient PHYSICAL EXAMINATION: GENERAL: The patient is A&O x3, NAD HEENT: EOMI, Sclerae anicteric, Moist Mucous membranes Neck: Supple, Non tender, No JVD PULMONARY: Equal breath souds B/L, No wheezing, No crackles. CARDIOVASCULAR: S1, S2 present. No murmurs, rubs, or gallops. ABDOMEN: Lower abdominal tenderness. Nondistended, normoactive bowel sounds. No guarding or rebound tenderness. MUSCULOSKELETAL: No edema, No cyanosis. No clubbing. Normal ROM. Intact peripheral pulses. NEUROLOGICAL: CN 2-12 grossly intact. No FND REVIEW OF SYSTEMS: CONSTITUTIONAL: No fever, no malaise, no fatigue. HEENT: No recent visual problems or hearing problems. Denied any sore throat. CARDIOVASCULAR: No chest pain, orthopnea, PND, no palpitations, no syncope. PULMONARY: No shortness of breath, no cough, no hemoptysis. GASTROINTESTINAL: No diarrhea, no nausea, no vomiting, complains of lower abdominal pain. NEUROLOGICAL: No headaches, no weakness, no numbness. HEMATOLOGICAL: Denies any bleeding or petechiae. GENITOURINARY: Denies any burning micturition, frequency, or urgency. MUSCULOSKELETAL/RHEUMATOLOGICAL: Denies any joint pain, swelling, or any muscle pain. ENDOCRINE: Denies any polyuria or polydipsia. The rest of the 14-point review of systems is negative. Dictation was produced using [employer] dictation software. please excuse any gr ammatical, word or spelling errors. Objective - Vital Signs Vital signs: Vital Signs Temp 98.4 F 11/30/24 13:09 Pulse 75 11/30/24 13:09 Resp 16 11/30/24 13:09 BP 120/71 11/30/24 13:09 Pulse Ox 97 11/30/24 13:09 FiO2 Intake & Output 11/29/24 11/30/24 11/30/24 18:59 06:59 18:59 Intake Total 1080 1080 Balance 1080 1080 Weight 70.307 kg Intake: Oral 1080 1080 Other: # Voids 2 2 2 - Labs CBC & Chem 7: 11/30/24 04:45 11/30/24 04:45 Labs: Abnormal Lab Results - Last 24 Hours (Table) 11/29/24 11/29/24 11/30/24 Range/Units 17:06 19:52 04:45 WBC 10.83 H (4.50-10.00) X 10*3/uL RBC 4.02 L (4.10-5.20) X 10*6/uL Hgb 11.8 L (12.0-15.0) g/dL Hct 36.6 L (37.2-46.3) % Creatinine (0.6-1.5) mg/dL POC Glucose (mg/dL) 139 H 131 H (70-110) mg/dL Calcium (8.7-10.3) mg/dL 11/30/24 11/30/24 Range/Units 04:45 12:24 WBC (4.50-10.00) X 10*3/uL RBC (4.10-5.20) X 10*6/uL Hgb (12.0-15.0) g/dL Hct (37.2-46.3) % Creatinine 0.5 L (0.6-1.5) mg/dL POC Glucose (mg/dL) 120 H (70-110) mg/dL Calcium 8.5 L (8.7-10.3) mg/dL Microbiology - Last 24 Hours (Table) 11/28/24 18:42 Blood Culture - Preliminary Blood
--- NOTE | 2024-11-30 15:12 | P.PN ---
Subjective Progress Note Date: 11/30/24 Principal diagnosis: Reason for follow-up visit abdominal pain leukocytosis Patient is a 59-year-old female with a past medical history significant for diabetes mellitus fibromyalgia sleep apnea presenting to the hospital for evaluation of left lower quadrant abdominal pain that apparently started about 4 hours before presentation to the hospital patient did have abn ormality to the endometrium on the CT and ultrasound however MACHINIST MATE saw the patient and mention not the source of her pain we subsequently CT abdominal pelvis with oral contrast did show significant constipation but no diverticulitis. On today's evaluation that is 11/30/2024, Patient is afebrile patient is currently on room air and denies having any shortness of breath, the patient denies any chest pain or cough, the patient denies any nausea vomiting mention Abdominal pain has slightly decreased in intensity. Patient white count down to 10.83, creatinine 0.5 blood cultures are pending Objective - Vital Signs Vital signs: Vital Signs Temp 98.4 F 11/30/24 13:09 Pulse 75 11/30/24 13:09 Resp 16 11/30/24 13:09 BP 120/71 11/30/24 13:09 Pulse Ox 97 11/30/24 13:09 FiO2 Intake & Output 11/29/24 11/30/24 11/30/24 18:59 06:59 18:59 Intake Total 1080 1080 Balance 1080 1080 Weight 70.307 kg Intake: Oral 1080 1080 Other: # Voids 2 2 2 - Exam GENERAL DESCRIPTION: Middle-age female lying in bed in no distress RESPIRATORY SYSTEM: Unlabored breathing , decreased breath sounds at bases HEART: S1 S2 regular rate and rhythm , ABDOMEN: Soft , no tenderness EXTREMITIES: No edema feet - Labs CBC & Chem 7: 11/30/24 04:45 11/30/24 04:45 Labs: Abnormal Lab Results - Last 24 Hours (Table) 11/29/24 11/29/24 11/30/24 Range/Units 17:06 19:52 04:45 WBC 10.83 H (4.50-10.00) X 10*3/uL RBC 4.02 L (4.10-5.20) X 10*6/uL Hgb 11.8 L (12.0-15.0) g/dL Hct 36.6 L (37.2-46.3) % Creatinine (0.6-1.5) mg/dL POC Glucose (mg/dL) 139 H 131 H (70-110) mg/dL Calcium (8.7-10.3) mg/dL 11/30/24 11/30/24 Range/Units 04:45 12:24 WBC (4.50-10.00) X 10*3/uL RBC (4.10-5.20) X 10*6/uL Hgb (12.0-15.0) g/dL Hct (37.2-46.3) % Creatinine 0.5 L (0.6-1.5) mg/dL POC Glucose (mg/dL) 120 H (70-110) mg/dL Calcium 8.5 L (8.7-10.3) mg/dL Microbiology - Last 24 Hours (Table) 11/28/24 18:42 Blood Culture - Preliminary Blood Assessment and Plan (1) Sepsis Current Visit: Yes Status: Acute Code(s): A41.9 - SEPSIS, UNSPECIFIED ORGANISM SNOMED Code(s): 01929366 (2) Leukocytosis Current Visit: Yes Status: Acute Code(s): D72.829 - ELEVATED WHITE BLOOD CELL COUNT, UNSPECIFIED SNOMED Code(s): 329580657 Plan: 1patient presented hospital with sepsis in this patient who did have fever elevated white count meeting criteria for SIRS patient did have significant t enderness to left lower quadrant area concerning for possible diverticulitis as the patient has been evaluated by OB and not concerned about the endometritis or PID, with the CT done with IV contrast only will make it less sensitive for any bowel evaluation 2-patient did have repeat the CT with the oral contrast only did show significant constipation but no diverticulitis 3-patient mentions some improvement in the symptoms white count is trending down continue Zosyn 3.375 g every 8 hours pending completion of the workup Dictation was produced using [employer] dictation software. please excuse any grammatical, word or spelling errors. Time with Patient: Less than 30
[2024-11-30 17:02] LABS: Glucose,Whole Blood 57 mg/dL (70-110)
[2024-11-30 17:27] LABS: Glucose,Whole Blood 89 mg/dL (70-110)
[2024-11-30 20:16] LABS: Glucose,Whole Blood 97 mg/dL (70-110)
[2024-11-30] MEDS: ZINC OXIDE PASTE (Z-GUARD) 1 APPLIC TOPICAL PRN (22:12)
[2024-12-01 07:06] LABS: Glucose,Whole Blood 88 mg/dL (70-110)
[2024-12-01] MEDS ORDERED: PROPOFOL 10 MG/ML 20 ML VIAL IV ONE (10:16)
[2024-12-01] MEDS ORDERED: LIDOCAINE 1% INJ 10MG/ML (20 ML MDV) ONE (10:16)
--- NOTE | 2024-12-01 10:44 | P.PCN ---
Date of Procedure: 12/01/24 Preoperative Diagnosis: Abdominal pain Constipation Postoperative Diagnosis: Abdominal pain Internal hemorrhoid Procedure(s) Performed: Colonoscopy Anesthesia: MAC Surgeon: Tanja Dawson Pathology: none sent Condition: stable Disposition: floor Indications for Procedure: 59-year-old female admitted secondary to abdominal pain and constipation. Abdominal pain was not resolving and patient has never had colonoscopy. Secondary to this plan is for colonoscopy for further evaluation of this lower abdominal pain. Risks, benefits and alternatives were provided to the patient. All questions answered. Operative Findings: Overall normal-appearing colon, internal hemorrhoid Description of Procedure: The patient was brought to the endoscopy suite and placed in left lateral decubitus position and adequate sedation was achieved using conscious sedation. Digital rectal exam was performed and mild internal hemorrhoids were palpated. An endoscope was then placed in the rectum and advanced to the cecum as identified by landmarks including the appendiceal orifice and the ileocecal valve. The prep was good. The colonoscope was then slowly withdrawn, examining for any mucosal abnormalities. The cecum, ascending, transverse, descending and sigmoid colon were visualized adequately. There were no large neoplastic lesions throughout the colon. No stricturing noted throughout the colon. No obvious colon polyps and no evidence of diverticulosis. Hemostasis was maintained. Retroflexion was performed in the rectum and internal hemorrhoids. Excess air was removed, the colonoscope withdrawn and the procedure terminated. The patient was then transferred to the recovery unit in stable condition. Repeat colonoscopy should be performed in 7-10 years.
[2024-12-01 11:23] LABS: N. gonorrhoeae,PCR Negative (Negative)
[2024-12-01 11:29] LABS: C. trachomatis,PCR Negative (Negative)
[2024-12-01 12:32] LABS: Glucose,Whole Blood 78 mg/dL (70-110)
[2024-12-01 15:52] VITALS: BMI 30.2
[2024-12-01 17:27] LABS: Glucose,Whole Blood 123 mg/dL (70-110)
[2024-12-01 21:03] LABS: Glucose,Whole Blood 94 mg/dL (70-110)
[2024-12-02 03:48] VITALS: RESP 16
[2024-12-02 06:03] LABS: Glucose,Whole Blood 94 mg/dL (70-110)
--- NOTE | 2024-12-02 07:48 | P.PN ---
Subjective Progress Note Date: 12/01/24 Principal diagnosis: Reason for follow-up visit abdominal pain leukocytosis Patient is a 59-year-old female with a past medical history significant for diabetes mellitus fibromyalgia sleep apnea presenting to the hospital for evaluation of left lower quadrant abdominal pain that apparently started about 4 hours before presentation to the hospital patient did have abn ormality to the endometrium on the CT and ultrasound however DIRECTOR OF CONTRACTS saw the patient and mention not the source of her pain we subsequently CT abdominal pelvis with oral contrast did show significant constipation but no diverticulitis. On today's evaluation that is 12/01/2024, patient has been afebrile, patient is breathing comfortably and is currently on room air, patient denies having any significant cough no chest pain, patient denies nausea vomiting or diarrhea and abdominal pain is currently controlled. Patient did not have CBC done today culture have been negative so far Objective - Vital Signs Vital signs: Vital Signs Temp 98.3 F 12/01/24 14:00 Pulse 81 12/01/24 14:00 Resp 17 12/01/24 14:00 BP 129/76 12/01/24 14:00 Pulse Ox 94 L 12/01/24 14:00 FiO2 Intake & Output 11/30/24 12/01/24 12/01/24 18:59 06:59 18:59 Intake Total 1080 320 Balance 1080 320 Weight 70.307 kg Intake: Oral 1080 320 Other: # Voids 2 # Bowel Movements 2 - Exam GENERAL DESCRIPTION: Middle-age female lying in bed in no distress RESPIRATORY SYSTEM: Unlabored breathing , decreased breath sounds at bases HEART: S1 S2 regular rate and rhythm , ABDOMEN: Soft , no tenderness EXTREMITIES: No edema feet - Labs CBC & Chem 7: 11/30/24 04:45 11/30/24 04:45 Labs: Abnormal Lab Results - Last 24 Hours (Table) 11/30/24 Range/Units 17:00 POC Glucose (mg/dL) 57 L (70-110) mg/dL Microbiology - Last 24 Hours (Table) 11/28/24 18:42 Blood Culture - Preliminary Blood Assessment and Plan (1) Sepsis Current Visit: Yes Status: Acute Code(s): A41.9 - SEPSIS, UNSPECIFIED ORGANISM SNOMED Code(s): 32701198 (2) Leukocytosis Current Visit: Yes Status: Acute Code(s): D72.829 - ELEVATED WHITE BLOOD CELL COUNT, UNSPECIFIED SNOMED Code(s): 520911609 Plan: 1patient presented hospital with sepsis in this patient who did have fever elevated white count meeting criteria for SIRS patient did have significant tenderness to left lower quadrant area concerning for possible diverticulitis as the patient has been evaluated by OB and not concerned about the endometritis or PID, with the CT done with IV contrast only will make it less sensitive for any bowel evaluation 2-patient did have repeat the CT with the oral contrast only did show signi ficant constipation but no diverticulitis, the patient is status post colonoscopy with a normal-appearing colon 3-patient will continue Zosyn 3.375 g every 8 hours and if culture remains to be negative consider short course of oral Augmentin on discharge Dictation was produced using [employer] dictation software. please excuse any grammatical, word or spelling errors. Time with Patient: Less than 30
[2024-12-02] MEDS: PANTOPRAZOLE 40 MG TABLET PO SCH (09:10)
[2024-12-02 12:51] LABS: Glucose,Whole Blood 117 mg/dL (70-110)
[2024-12-02 14:28] VITALS: BP 117/67; PULSE 81; TEMP 98.3
--- NOTE | 2024-12-02 14:46 | P.PN ---
Subjective Progress Note Date: 12/02/24 Patient seen and examined at bedside. Tolerating diet. States she continues to have on and off episodes of lower abdominal pain. Objective - Vital Signs Vital signs: Vital Signs Temp 98.3 F 12/02/24 14:00 Pulse 81 12/02/24 14:00 Resp 16 12/02/24 14:00 BP 117/67 12/02/24 14:00 Pulse Ox 96 12/02/24 14:00 FiO2 Intake & Output 12/01/24 12/02/24 12/02/24 18:59 06:59 18:59 Intake Total 500 473 Balance 500 473 Weight 70.307 kg Intake: Oral 500 473 Other: # Voids 2 - Constitutional General appearance: Present: cooperative, no acute distress - Respiratory Details: No difficulty with respiration - Gastrointestinal Gastrointestinal Comment(s): Soft, nontender, nondistended, no rebound, no guarding - Labs CBC & Chem 7: 11/30/24 04:45 11/30/24 04:45 Labs: Abnormal Lab Results - Last 24 Hours (Table) 12/01/24 12/02/24 Range/Units 17:23 12:48 POC Glucose (mg/dL) 123 H 117 H (70-110) mg/dL Microbiology - Last 24 Hours (Table) 11/28/24 18:42 Blood Culture - Preliminary Blood Assessment and Plan Plan: 59-year-old female with lower abdominal pain. CT scan x 2 reviewed with no acute finding noted. Patient did undergo colonoscopy yesterday with no acute findings and, in fact, normal-appearing colon. At this point, no obvious surgical cause of abdominal pain. Continue with medical workup.
--- NOTE | 2024-12-02 15:50 | P.PN ---
Subjective Progress Note Date: 12/02/24 Principal diagnosis: Reason for follow-up visit abdominal pain leukocytosis Patient is a 59-year-old female with a past medical history significant for diabetes mellitus fibromyalgia sleep apnea presenting to the hospital for evaluation of left lower quadrant abdominal pain that apparently started about 4 hours before presentation to the hospital patient did have abn ormality to the endometrium on the CT and ultrasound however ANIME ARTIST saw the patient and mention not the source of her pain we subsequently CT abdominal pelvis with oral contrast did show significant constipation but no diverticulitis. On today's evaluation that is 12/02/2024, Patient is afebrile this morning patient denies having any chest pain shortness of breath or cough, the patient is currently on room air, patient still complaining of left-sided abdominal pain no diarrhea no nausea no vomiting. No new lab has been obtained today Objective - Vital Signs Vital signs: Vital Signs Temp 98.6 F 12/02/24 08:00 Pulse 87 12/02/24 08:00 Resp 16 12/02/24 08:00 BP 130/70 12/02/24 08:00 Pulse Ox 98 12/02/24 08:00 FiO2 Intake & Output 12/01/24 12/02/24 12/02/24 18:59 06:59 18:59 Intake Total 500 236 Balance 500 236 Weight 70.307 kg Intake: Oral 500 236 Other: # Voids 2 - Exam GENERAL DESCRIPTION: Middle-age female lying in bed in no distress RESPIRATORY SYSTEM: Unlabored breathing , decreased breath sounds at bases HEART: S1 S2 regular rate and rhythm , ABDOMEN: Soft , no tenderness EXTREMITIES: No edema feet - Labs CBC & Chem 7: 11/30/24 04:45 11/30/24 04:45 Labs: Abnormal Lab Results - Last 24 Hours (Table) 12/01/24 Range/Units 17:23 POC Glucose (mg/dL) 123 H (70-110) mg/dL Microbiology - Last 24 Hours (Table) 11/28/24 18:42 Blood Culture - Preliminary Blood Assessment and Plan (1) Sepsis Current Visit: Yes Status: Acute Code(s): A41.9 - SEPSIS, UNSPECIFIED ORGANISM SNOMED Code(s): 61074046 (2) Leukocytosis Current Visit: Yes Status: Acute Code(s): D72.829 - ELEVATED WHITE BLOOD CELL COUNT, UNSPECIFIED SNOMED Code(s): 504820467 Plan: 1patient presented hospital with sepsis in this patient who did have fever elevated white count meeting criteria for SIRS patient did have significant tenderness to left lower quadrant area concerning for possible diverticulitis as the patient has been evaluated by OB and not concerned about the endometritis or PID, with the CT done with IV contrast only will make it less sensitive for any bowel evaluation 2-patient did have repeat the CT with the oral contrast only did show significant constipation but no diverticulitis, the patient is status post co lonoscopy with a normal-appearing colon 3-patient remains to be afebrile white count has been normal culture has been negative may consider short course of oral Augmentin on discharge and follow-up with her OB discussed with the LINK TRAINER OPERATOR for admitting team Dictation was produced using [employer] dictation software. please excuse any grammatical, word or spelling errors. Time with Patient: Less than 30
== END 2024-12-02 15:35 | disposition home or self-care (01) | DRG 872 ==
LOC: EC 17:44 → 5NMEDONC 22:49 → 6NMEDSUR 12-01 17:51
PROVIDERS: ADMIT Hospitalist; ATTEND Hospitalist
PROC: 0DJD8ZZ Inspection of Lower Intestinal Tract, Via Natural or Artificial Opening Endoscopic (ICD-10-PCS; principal; 2024-12-01 07:50)
DX: A41.9 Sepsis, unspecified organism (principal); E11.9 Type 2 diabetes mellitus without complications; G47.33 Obstructive sleep apnea (adult) (pediatric); G89.4 Chronic pain syndrome; R93.89 Abnormal findings on diagnostic imaging of other specified body structures; K59.00 Constipation, unspecified; K21.9 Gastro-esophageal reflux disease without esophagitis; M79.7 Fibromyalgia; K64.8 Other hemorrhoids; Z79.890 Hormone replacement therapy; Z79.1 Long term (current) use of non-steroidal anti-inflammatories (NSAID); Z79.891 Long term (current) use of opiate analgesic; Z79.899 Other long term (current) drug therapy; Z88.2 Allergy status to sulfonamides
CPT/HCPCS: 36415; 45378; 74176; 74177; 76830; 80048; 80053; 81001; 82150; 83605; 83690; 84703; 85025; 85652; 86140; 87040; 87491; 87591; 93005; 96361; 96365; 96367; 96375; 99285

== ENCOUNTER 2024-12-04 07:19 | Emergency (ER) | payer OTHER ==
[2024-12-04] MEDS: HYDROmorphone 0.5 MG/0.5 ML SYRINGE IVP STA (08:42)
[2024-12-04] MEDS: SODIUM CHLORIDE 0.9% 1,000 ML IV STA (08:42)
[2024-12-04 08:53] LABS: Appearance,Urine Clear (Clear); Bilirubin,Urine Negative (Negative); Blood,Urine Large (Negative); Color,Urine Yellow; Glucose,Urine (UA) Negative (Negative); Ketones,Urine Negative (Negative); Leukocyte Esterase,Urine Negative (Negative); Mucus,Urine Few /hpf; Nitrite,Urine Negative (Negative); Protein,Urine Trace (Negative); RBC,Urine 26 /hpf (0-5); Specific Gravity,Urine 1.023 (1.001-1.035); Squamous Epithelial Cell,Urine 1 /hpf (0-4); Urobilinogen,Urine <2.0 mg/dL (<2.0); WBC,Urine 2 /hpf (0-5)
[2024-12-04 09:02] LABS: Basophils % (A) 0 %; Eosinophils # (A) 0.3 k/uL (0-0.7); Eosinophils % (A) 3 %; HCT 39.7 % (34.0-46.0); HGB 13.4 gm/dL (11.4-16.0); Lymphocytes # (A) 0.7 k/uL (1.0-4.8); Lymphocytes % (A) 8 %; MCH 30.4 pg (25.0-35.0); MCHC 33.7 g/dL (31.0-37.0); MCV 90.3 fL (80.0-100.0); Mean Platelet Volume 8.1; Monocytes # (A) 0.3 k/uL (0-1.0); Monocytes % (A) 4 %; Neutrophils # (A) 6.8 k/uL (1.3-7.7); Neutrophils % (A) 84 %; Platelet Count 292 k/uL (150-450); RBC 4.39 m/uL (3.80-5.40); RDW 13.4 % (11.5-15.5); WBC 8.1 k/uL (3.8-10.6)
--- NOTE | 2024-12-04 09:05 | XR ---
EXAMINATION TYPE: XR KUB DATE OF EXAM: 12/04/2024 8:58 AM COMPARISON: Correlation CT 11/29/2024 CLINICAL INDICATION: Female, 59 years old with history of abdominal pain, , FINDINGS: Lung bases are clear. Spinal stimulator array centered along the lower thoracic spinal canal. Tubal l igation clips in the pelvis. No evidence for free intraperitoneal air. Scattered colonic and small bowel air fluid levels though without any abnormal bowel dilatation. No suspicious calcifications seen. IMPRESSION: 1. 1. Scattered colonic and small bowel air fluid levels. No bowel dilatation seen. Consider enteritis o r generalized ileus. 2. Overall nonobstructive bowel gas pattern. No free air. 3. Advise appropriate TRAFFIC ANALYST follow-up to assess the bulky uterus/endometrial thickening seen previou sly. Neoplasm is in the differential. [facility], Workstation: [facility], 12/04/2024 9:03 AM
--- NOTE | 2024-12-04 09:13 | ED ---
General Adult HPI - General Chief complaint: Abdominal Pain Stated complaint: VD left flank pain Time Seen by Provider: 12/04/24 07:23 Source: patient, RN notes reviewed, old records reviewed Mode of arrival: ambulatory Limitations: no limitations - History of Present Illness Initial comments: 59-year-old female presenting for reevaluation of abdominal pain nausea vomiting and diarrhea. Patient was admitted to the hospital where she received evaluati on by general surgery and WAGON DRIVER SALESPERSON. She had been placed on pain medication and antibiotics for suspected pelvic infection. This was ruled out by gynecology. She states she went home and was doing okay for several days but developed recurrent symptoms today which includes left lower quadrant pain nausea vomiting. She also had a colonoscopy which was reported as normal by the patient. - Related Data Home Medications Medication Instructions Recorded Confirmed Cyclobenzaprine [Flexeril] 5 mg PO DAILY 11/29/24 11/29/24 Dextroamphetamine/Amphetamine 10 mg PO DAILY 11/29/24 11/29/24 [Adderall Xr 10 mg Capsule] HYDROcodone/APAP 5-325MG [Sutton 1 tab PO BID 11/29/24 11/29/24 5-325] Levothyroxine Sodium [Synthroid] 50 mcg PO DAILY 11/29/24 12/01/24 Milnacipran HCl [Savella] 100 mg PO BID 11/29/24 12/01/24 Morphine Sulfate ER [Ms Contin] 15 mg PO BID 11/29/24 11/29/24 Orphenadrine [Norflex] 100 mg PO BID PRN 11/29/24 11/29/24 buPROPion XL [Wellbutrin XL] 300 mg PO DAILY 11/29/24 11/29/24 lisinopriL [Zestril] 10 mg PO DAILY 11/29/24 11/29/24 rOPINIRole HCL [Requip] 1 mg PO HS 11/29/24 11/29/24 traZODone HCL [Desyrel] 50 mg PO HS 11/29/24 11/29/24 Lactulose 10 gm PO BID PRN 12/01/24 12/01/24 Meloxicam [Mobic] 7.5 mg PO BID 12/01/24 12/01/24 Previous Rx's Medication Instructions Recorded Amoxic-Pot Clav 875-125Mg 1 tab PO BID 7 Days #14 tab 12/02/24 [Augmentin 875-125] Pantoprazole [Protonix] 40 mg PO AC-BRKFST #30 tab 12/02/24 Allergies Allergy/AdvReac Type Severity Reaction Status Date / Time Sulfa (Sulfonamide Allergy Rash/Hives Verified 12/04/24 07:24 Antibiotics) sulfamethoxazole Allergy Rash/Hives Verified 12/04/24 07:24 [From Bactrim] trimethoprim [From Bactrim] Allergy Rash/Hives Verified 12/04/24 07:24 steri strips Allergy Rash/Hives Uncoded 12/04/24 07:24 Review of Systems ROS Statement: Those systems with pertinent positive or pertinent negative responses have been documented in the HPI. ROS Other: All systems not noted in ROS Statement are negative. Past Medical History Past Medical History: Diabetes Mellitus, Fibromyalgia, Sleep Apnea/CPAP/BIPAP Additional Past Medical History / Comment(s): Fatiалександр, TMJ, History of Any Multi-Drug Resistant Organisms: None Reported Past Surgical History: Breast Surgery, Orthopedic Surgery Additional Past Surgical History / Comment(s): D&C. R foot. L knee. Breast Reduction. L arm. R arm Past Anesthesia/Blood Transfusion Reactions: No Reported Reaction Past Psychological History: No Psychological Hx Reported Smoking Status: Never smoker Past Alcohol Use History: Occasional Past Drug Use History: None Reported General Exam Limitations: no limitations General appearance: alert, in no apparent distress Head exam: Present: atraumatic, normocephalic Eye exam: Present: normal appearance, PERRL ENT exam: Present: normal exam Neck exam: Present: normal inspection. Absent: tenderness, meningismus Respiratory exam: Absent: respiratory distress, wheezes Cardiovascular Exam: Present: regular rate, normal rhythm GI/Abdominal exam: Present: soft, tenderness (Minimal tenderness). Absent: distended Extremities exam: Present: normal inspection, normal capillary refill. Absent: pedal edema Neurological exam: Present: alert, oriented X3, CN II-XII intact. Absent: motor sensory deficit Psychiatric exam: Present: normal affect, normal mood Skin exam: Present: warm, dry, intact Course Vital Signs 12/04/24 12/04/24 07:24 08:38 Temperature 97.4 F L 99.0 F Pulse Rate 102 H Respiratory 18 20 Rate Blood Pressure 162/81 153/84 O2 Sat by Pulse 98 Oximetry Medical Decision Making - Medical Decision Making Was pt. sent in by a medical professional or institution (NATHALY Leavitt, INFRASTRUCTURE SOFTWARE ENGINEER, urgent care, hospital, or penitentiary...) When possible be specific @ -No Did you speak to anyone other than the patient for history (EMS, parent, family, police, friend...)? What history was obtained from this source @ -No Did you review nursing and triage notes (agree or disagree)? Why? @ -I reviewed and agree with nursing and triage notes Were old charts reviewed (outside hosp., previous admission, EMS record, old EKG, old radiological studies, urgent care reports/EKG's, penitentiary records)? Report findings @ -No old charts were reviewed Differential Abdominal Pain Women: Appendicitis, Cholecystitis, diverticulosis, ischemic bowel, pancreatitis, hepatitis, UTI, gastroenteritis, AAA, incarcerated hernia, bowel obstruction, constipation, inflammatory bowel, hepatitis, peptic ulcer disease, splenic infarction, perforated viscus, vulvitis, ovarian torsion, PID, kidney stone, placenta abruption, this is not meant to be an all-inclusive list EKG interpreted by me (3pts min.). @X-ray showing multiple air-fluid levels in the nondistended bowel. Consistent with enteritis given the history of significant diarrhea. X-rays interpreted by me (1pt min.). @ -None done CT interpreted by me (1pt min.). @ -None done U/S interpreted by me (1pt. min.). @ -None done What testing was considered but not performed or refused? (CT, X-rays, U/S, labs)? Why? @ -None What meds were considered but not given or refused? Why? @ -None Did you discuss the management of the patient with other professionals (professionals i.e. NATHALY Leavitt, INFRASTRUCTURE SOFTWARE ENGINEER, lab, RT, psych nurse, social work program coordinator, immigration associate, teacher, planned giving officer, business case analyst)? Give summary @ -No Was smoking cessation discussed for >3mins.? @ -No Was critical care preformed (if so, how long)? @ -No Were there social determinants of health that impacted care today? How? (Homelessness, low income, unemployed, alcoholism, drug addiction, transportation, low edu. Level, literacy, decrease access to med. care, prison, rehab)? @ -No Was there de-escalation of care discussed even if they declined (Discuss DNR or withdrawal of care, Hospice)? DNR status @ -No What co-morbidities impacted this encounter? (DM, HTN, Smoking, COPD, CAD, Cancer, CVA, ARF, Chemo, Hep., AIDS, mental health diagnosis, sleep apnea, morbid obesity)? @ -None Was patient admitted / discharged? Hospital course, mention meds given and route, prescriptions, significant lab abnormalities, going to OR and other pertinent info. @ -[59-year-old female with nausea vomiting diarrhea. Patient is well- appearing with stable vitals. X-ray does show likely enteritis. She has normal laboratory testing. She is following with WAGON DRIVER SALESPERSON regarding the "bulky uterus" Patient well-hydrated and feeling better on reevaluation. Stable for discharge. Undiagnosed new problem with uncertain prognosis? @ -No Drug Therapy requiring intensive monitoring for toxicity (Heparin, Nitro, Insulin, Cardizem)? @ -No Were any procedures done? @ -No Diagnosis/symptom? @ -[Nausea vomiting diarrhea Acute, or Chronic, or Acute on Chronic? @ -Acute Uncomplicated (without systemic symptoms) or Complicated (systemic symptoms)? @ -Default Side effects of treatment? @ -No Exacerbation, Progression, or Severe Exacerbation? @ -No Poses a threat to life or bodily function? How? (Chest pain, USA, ID, pneumonia, PE, COPD, DKA, ARF, appy, cholecystitis, CVA, Diverticulitis, Homicidal, Suicidal, threat to staff... and all critical care pts) @ -No - Lab Data Result diagrams: 12/04/24 08:35 12/04/24 08:35 Lab Results 12/04/24 12/04/24 12/04/24 Range/Units 08:35 08:35 08:35 WBC 8.1 (3.8-10.6) k/uL RBC 4.39 (3.80-5.40) m/uL Hgb 13.4 (11.4-16.0) gm/dL Hct 39.7 (34.0-46.0) % MCV 90.3 (80.0-100.0) fL MCH 30.4 (25.0-35.0) pg MCHC 33.7 (31.0-37.0) g/dL RDW 13.4 (11.5-15.5) % Plt Count 292 (150-450) k/uL MPV 8.1 Neutrophils % 84 % Lymphocytes % 8 % Monocytes % 4 % Eosinophils % 3 % Basophils % 0 % Neutrophils # 6.8 (1.3-7.7) k/uL Lymphocytes # 0.7 L (1.0-4.8) k/uL Monocytes # 0.3 (0-1.0) k/uL Eosinophils # 0.3 (0-0.7) k/uL Basophils # 0.0 (0-0.2) k/uL Sodium 139 (137-145) mmol/L Potassium 4.3 (3.5-5.1) mmol/L Chloride 103 (98-107) mmol/L Carbon Dioxide 30 (22-30) mmol/L Anion Gap 6 mmol/L BUN 15 (7-17) mg/dL Creatinine 0.63 (0.52-1.04) mg/dL Est GFR (CKD-EPI)AfAm >90 (>60 ml/min/1.73 sqM) Est GFR (CKD-EPI)NonAf >90 (>60 ml/min/1.73 sqM) Glucose 94 (74-99) mg/dL Calcium 9.1 (8.4-10.2) mg/dL Total Bilirubin 0.4 (0.2-1.3) mg/dL AST 43 H (14-36) U/L ALT 55 H (4-34) U/L Alkaline Phosphatase 67 (38-126) U/L Total Protein 6.2 L (6.3-8.2) g/dL Albumin 3.6 (3.5-5.0) g/dL Urine Color Yellow Urine Appearance Clear (Clear) Urine pH 6.0 (5.0-8.0) Ur Specific [place] 1.023 (1.001-1.035) Urine Protein Trace H (Negative) Urine Glucose (UA) Negative (Negative) Urine Ketones Negative (Negative) Urine Blood Large H (Negative) Urine Nitrite Negative (Negative) Urine Bilirubin Negative (Negative) Urine Urobilinogen <2.0 (<2.0) mg/dL Ur Leukocyte Esterase Negative (Negative) Urine RBC 26 H (0-5) /hpf Urine WBC 2 (0-5) /hpf Ur Squamous Epith Cells 1 (0-4) /hpf Urine Mucus Few H (None) /hpf Disposition Clinical Impression: Nausea vomiting and diarrhea Disposition: HOME SELF-CARE Condition: Good Instructions (If sedation given, give patient instructions): Acute Nausea and Vomiting (ED), Acute Diarrhea (ED) Is patient prescribed a controlled substance at d/c from ED?: No Referrals: Magui Fishman MD [Primary Care Provider] - 1-2 days Time of Disposition: 10:29
[2024-12-04 10:00] LABS: ALT 55 U/L (4-34); AST 43 U/L (14-36); African American GFR (CKD) >90 (>60 ml/min/1.73 sqM); Albumin 3.6 g/dL (3.5-5.0); Alkaline Phosphatase 67 U/L (38-126); Anion Gap 6 mmol/L; Blood Urea Nitrogen 15 mg/dL (7-17); Calcium 9.1 mg/dL (8.4-10.2); Carbon Dioxide 30 mmol/L (22-30); Chloride 103 mmol/L (98-107); Glucose 94 mg/dL (74-99); Non-African American GFR(CKD) >90 (>60 ml/min/1.73 sqM); Potassium 4.3 mmol/L (3.5-5.1); Sodium 139 mmol/L (137-145); Total Bilirubin 0.4 mg/dL (0.2-1.3); Total Protein 6.2 g/dL (6.3-8.2)
[2024-12-04 10:45] VITALS: BP 149/75; PULSE 98; RESP 18; TEMP 98.4
== END 2024-12-04 10:53 | disposition home or self-care (01) ==
LOC: EC 07:19
DX: R10.32 Left lower quadrant pain (principal); R11.2 Nausea with vomiting, unspecified; R19.7 Diarrhea, unspecified; Z88.2 Allergy status to sulfonamides; Z91.09 Other allergy status, other than to drugs and biological substances; Z88.1 Allergy status to other antibiotic agents
CPT/HCPCS: 36415; 80053; 85025; 81001; 74018; 99284; 96374; 96361; J1171